=== PATIENT | female | born 1975 | race Caucasian/White ===

== ENCOUNTER → 2021-07-11 13:15 | Outpatient (CLI) | payer OTHER, SELFPAY ==
[2021-07-11 15:10] LABS: Thyroid Stimulating Hormone 13.2 uIU/mL (0.47-4.68)
== END ==
PROVIDERS: PCP Student in an Organized Health Care Education/Training Program; Referring Provider Student in an Organized Health Care Education/Training Program; Visit Provider Student in an Organized Health Care Education/Training Program
DX: E03.9 Hypothyroidism, unspecified (principal)
CPT/HCPCS: 36415; 84443